=== PATIENT | female | born 1945 ===

== ENCOUNTER 2024-09-11 07:30 | Inpatient (IN) | payer OTHER ==
[~2024-09-11] VITALS: Ht 157.5 cm; Wt 62.6 kg
[~2024-09-11 07:30] MED LIST: AMLODIPINE-OLM1 EACH; COZAAR100 MG PO; FOLIC ACID0.8 M1; LASIX20 MG; LEVO-T75 MCG PO; LIPITOR40 M1 PO; VYNDAMAX61 MG PO
[2024-09-11 07:46] LABS: HEMOGLOBIN 12.8 g/dL (12.0-15.00); MEAN CELL VOLUME 83.8 fL (80.00-100.00); MEAN CORPUSCULAR HEMOGLOBIN 26.9 pg (27.00-32.0); MEAN CORPUSCULAR HGB CONC 32.1 g/dl (32.0-36.0); PLATELET COUNT 264 K/uL (150-450); RED BLOOD COUNT 4.77 M/uL (4.00-6.00); RED CELL DISTRIBUTION WIDTH 17.3 % (11.5-14.5)
[2024-09-11 07:47] LABS: URINE APPEARANCE Clear; URINE BACTERIA 20.7 uL (0.0-1933); URINE BILIRRUBIN Negative (NEGATIVE); URINE BLOOD Negative; URINE COLOR Yellow; URINE EPITHELIAL CELLS 5.9 uL (0.0-38.8); URINE GLUCOSE Negative (NEGATIVE); URINE KETONE Negative (NEGATIVE); URINE LEUKOCYTE Small; URINE NITRATE Negative; URINE PROTEIN Negative (NEGATIVE); URINE RBC 7.8 uL (0.0-20.8); URINE UROBILINOGEN 0.2 E.U./dl; URINE WBC 20.2 uL (0.0-23.2)
[2024-09-11 08:02] VITALS: BP 152/90
[2024-09-11 08:08] LABS: INR 0.98; PARTIAL THROMBOPLASTIN TIME 28.5 SECONDS (22.0-34.0); PROTHROMBIN TIME 10.7 SECONDS (9.0-11.5)
[2024-09-11 08:25] LABS: ALBUMIN 3.9 gm/dL (3.4-5.0); BILIRUBIN TOTAL 0.43 mg/dL (0.3-1.2); CALCIUM 9.4 mg/dL (8.5-10.1); CHOL HDL RATIO 2.8 (0-5.0); CREATININE SERUM 0.64 mg/dL (0.55-1.02); GFR 89.98; GLOBULINA 3.6 G/DL (2.4-3.5); POTASSIUM 4.52 mEq/L (3.5-5.1); TOTAL PROTEIN 7.5 gm/dL (6.4-8.2)
[2024-09-11 09:21] LABS: RH POSITIVE
[2024-09-17] MEDS ORDERED: LIDOCAINE HCL 1%/EPINEPHRINE 20ML VIAL IJ ONE (08:00)
[2024-09-17] MEDS ORDERED: TRANEXAMIC ACID 100MG/1ML (1000MG) AMPUL IV ONE ×2 (08:00)
[2024-09-17] MEDS ORDERED: KETOROLAC TROMETHAMINE 60 MG VIAL IM ONE (08:00)
[2024-09-17] MEDS ORDERED: BUPIVACAINE HCL 30 ML VIAL IJ ONE (08:00)
[2024-09-17] MEDS ORDERED: CEFAZOLIN SODIUM 1,000 MG VIAL IV ONE (08:15)
[2024-09-17] MEDS ORDERED: POVIDONE-IODINE 118 ML BOTT TOP ONE (08:15)
[2024-09-17] MEDS ORDERED: MORPHINE SULFATE 4 MG/ML VIAL IV ONE (08:15)
[2024-09-17] MEDS ORDERED: AMLODIPINE BESYLATE 5 MG TABLET PO SCH (09:00)
[2024-09-17] MEDS ORDERED: LOSARTAN POTASSIUM 100 MG TABLET PO SCH (09:00)
[2024-09-17] MEDS ORDERED: ENALAPRILAT DIHYDRATE 1.25 MG/ML VIAL IV PRN (09:00)
[2024-09-17] MEDS ORDERED: SODIUM CHLORIDE 0.45 % 1,000 ML IV SCH (09:30)
[2024-09-17] MEDS ORDERED: MORPHINE SULFATE 4 MG/ML CARTRIDGE IV PRN (09:30)
[2024-09-17] MEDS ORDERED: ONDANSETRON HCL 2 MG/ML VIAL IV PRN (09:30)
[2024-09-17] MEDS ORDERED: OxyCODONE HCL 5 MG TABLET (ROXICODONE) PO PRN (09:30)
[2024-09-17] MEDS ORDERED: BUTALB/ACETAMINOPHEN/CAFFEINE 1 TAB TABLET PO ONE (09:40)
[2024-09-17] MEDS ORDERED: ONDANSETRON HCL 2 MG/ML VIAL IV ONE (10:20)
[2024-09-17] MEDS ORDERED: ACETAMINOPHEN 500 MG GEL..CAP PO SCH (12:00)
[2024-09-17 14:03] VITALS: BP 137/81; O2SAT 95
[2024-09-17 16:22] VITALS: BP 153/75; O2SAT 97
[2024-09-17] MEDS ORDERED: GABAPENTIN 300 MG CAPSULE PO SCH (17:00)
[2024-09-17] MEDS ORDERED: ATORVASTATIN CALCIUM 40 MG TABLET PO SCH (17:00)
[2024-09-17] MEDS ORDERED: CEFAZOLIN SODIUM 1,000 MG VIAL IV SCH (17:00)
[2024-09-18 00:44] VITALS: BP 130/66; O2SAT 95
[2024-09-18] MEDS ORDERED: LEVOTHYROXINE SODIUM 75 MCG TABLET PO SCH (06:00)
[2024-09-18 07:20] LABS: HEMOGLOBIN 11.3 g/dL (12.0-15.00); MEAN CELL VOLUME 82.5 fL (80.00-100.00); MEAN CORPUSCULAR HEMOGLOBIN 27.4 pg (27.00-32.0); MEAN CORPUSCULAR HGB CONC 33.2 g/dl (32.0-36.0); PLATELET COUNT 229 K/uL (150-450); RED BLOOD COUNT 4.11 M/uL (4.00-6.00); RED CELL DISTRIBUTION WIDTH 17.5 % (11.5-14.5)
[2024-09-18] MEDS ORDERED: PERCOCET 5-3251 EACH PO (08:29)
[2024-09-18] MEDS ORDERED: CEFADROXIL500 MG PO (08:29)
[2024-09-18] MEDS ORDERED: ELIQUIS2.5 MG PO (08:29)
[2024-09-18 08:34] VITALS: BP 135/68; O2SAT 96
[2024-09-18] MEDS ORDERED: SENNOSIDES 1 TAB TABLET PO SCH (09:00)
[2024-09-18] MEDS ORDERED: APIXABAN 2.5 MG TABLET PO SCH (09:00)
[2024-09-18] MEDS ORDERED: SOD FERRIC GLUC COMPLX/SUCROSE 62.5 MG/5 ML AMPUL IV SCH (12:46)
[2024-09-18] MEDS ORDERED: Cyanocobalamin/Mecobalamin 1 TAB.SL SL SCH (12:47)
[2024-09-18 16:00] VITALS: BP 116/63; O2SAT 96
[2024-09-18] MEDS ORDERED: VITAMIN B COMPLEX 1 EACH PO SCH (17:00)
[2024-09-19 00:51] VITALS: BP 115/66; O2SAT 95
[2024-09-19 06:53] LABS: HEMATOCRIT 32.8 % (36.0-45.00); HEMOGLOBIN 10.7 g/dL (12.0-15.00); MEAN CELL VOLUME 83.8 fL (80.00-100.00); MEAN CORPUSCULAR HEMOGLOBIN 27.2 pg (27.00-32.0); MEAN CORPUSCULAR HGB CONC 32.5 g/dl (32.0-36.0); PLATELET COUNT 222 K/uL (150-450); RED BLOOD COUNT 3.92 M/uL (4.00-6.00); RED CELL DISTRIBUTION WIDTH 17.5 % (11.5-14.5)
[2024-09-19 08:59] VITALS: BP 152/82; O2SAT 97
[2024-09-19] MEDS ORDERED: IRON FUM,PS/FOLIC ACID/VITC/B3 1 CAP CAPSULE PO SCH (09:00)
[2024-09-19 16:15] VITALS: BP 128/71; O2SAT 97
[2024-09-19] MEDS ORDERED: OxyCODONE HCL 5 MG TABLET (ROXICODONE) PO PRN (18:45)
[2024-09-20] VITALS: BP 111/65; O2SAT 95
[2024-09-20 08:00] VITALS: BP 149/86; O2SAT 95
[2024-09-20] MEDS ORDERED: MORPHINE SULFATE 2 MG/ML CARTRIDGE IV STA (11:24)
== END 2024-09-20 14:41 | DRG 470 ==
LOC: O/R 09-17 05:11 → SURH 09-17 07:30 → SURG 09-17 10:27 → SURH 09-17 20:00 → SURG 09-20 14:41
PROVIDERS: ADMIT Orthopaedic Surgery; ATTEND Orthopaedic Surgery
PROC: 0MNN0ZZ Release Right Knee Bursa and Ligament, Open Approach (ICD-10-PCS; 2024-09-17)
PROC: 0SUD07Z Supplement Left Knee Joint with Autologous Tissue Substitute, Open Approach (ICD-10-PCS; 2024-09-17)
PROC: 0SRD0J9 Replacement of Left Knee Joint with Synthetic Substitute, Cemented, Open Approach (ICD-10-PCS; principal; 2024-09-17 20:00)
DX: M17.12 Unilateral primary osteoarthritis, left knee (principal); M22.12 Recurrent subluxation of patella, left knee

== ENCOUNTER 2024-09-20 17:05 | Emergency (ER) | payer OTHER ==
[~2024-09-20] VITALS: Ht 152.4 cm; Wt 65.8 kg
[~2024-09-20 17:05] MED LIST changes: +CEFADROXIL500 MG PO; +ELIQUIS2.5 MG PO; +PERCOCET 5-3251 EACH PO
[2024-09-20] MEDS ORDERED: KETOROLAC TROMETHAMINE 30 MG VIAL IU ONE (17:30)
[2024-09-20] MEDS ORDERED: KETOROLAC TROMETHAMINE 30 MG VIAL ONE (17:32)
[2024-09-20 18:00] LABS: HEMATOCRIT 34.3 % (36.0-45.00); HEMOGLOBIN 11.1 g/dL (12.0-15.00); MEAN CELL VOLUME 84.3 fL (80.00-100.00); MEAN CORPUSCULAR HEMOGLOBIN 27.3 pg (27.00-32.0); MEAN CORPUSCULAR HGB CONC 32.4 g/dl (32.0-36.0); PLATELET COUNT 267 K/uL (150-450); RED BLOOD COUNT 4.06 M/uL (4.00-6.00); RED CELL DISTRIBUTION WIDTH 17.5 % (11.5-14.5)
[2024-09-20 19:47] LABS: ALBUMIN 2.9 gm/dL (3.4-5.0); BILIRUBIN TOTAL 0.68 mg/dL (0.3-1.2); CALCIUM 9.1 mg/dL (8.5-10.1); CREATININE SERUM 0.42 mg/dL (0.55-1.02); GFR 146.3; GLOBULINA 4.2 G/DL (2.4-3.5); POTASSIUM 4.75 mEq/L (3.5-5.1); TOTAL PROTEIN 7.1 gm/dL (6.4-8.2)
== END 2024-09-21 00:36 | disposition home or self-care (01) ==
LOC: ER 17:05
PROVIDERS: General Practice
DX: M25.552 Pain in left hip (principal); Z96.652 Presence of left artificial knee joint; I10 Essential (primary) hypertension; E03.8 Other specified hypothyroidism; E11.9 Type 2 diabetes mellitus without complications; Z91.041 Radiographic dye allergy status
CPT/HCPCS: 36415; 73501; 73560; 96365; 99283; J1885